=== PATIENT | female | born 1985 | race Caucasian/White ===

== ENCOUNTER 2020-12-31 07:50 | Inpatient (IN) ==
[2020-12-31] MEDS ORDERED: Lactated Ringers 1000 ml BAG 1,000 ML IV ONE (08:50)
[2020-12-31] MEDS ORDERED: Buffered Lidocaine 1% SYRIN 1 ml INTRADERM ONE (08:50)
[2020-12-31] MEDS ORDERED: Lactated Ringers 1000 ml BAG 1,000 ML IV SCH (09:00)
[2020-12-31 09:38] LABS: Urine Benzodiazepine Screen None Detected (None Detect); Urine Cannabinoids Screen None Detected (None Detect); Urine Opiates Screen None Detected (None Detect)
[2020-12-31] MEDS ORDERED: Promethazine INJ(RESTRICTED) 25 MG/ML 1 ml VIAL IV PRN (22:37)
[2020-12-31] MEDS ORDERED: Morphine 10 MG/ML VIAL (1 ml) IV ONE (22:37)
[2020-12-31 23:39] LABS: Hematocrit 41 % (35-47); Mean Corpuscular HGB Conc 34 g/dL (31-36); Mean Corpuscular Hemoglobin 31 pg (27-31); Mean Corpuscular Volume 93 fL (80-97); Red Blood Count 4.46 10^6 /uL (3.70-4.87); Red Cell Distribution Width 14 % (10-15); White Blood Count 7.4 10^3/uL (3.5-10.8)
[2020-12-31 23:40] LABS: ABS Monocytes 0.7 10^3/ul (0-0.8); ABS Neutrophils 4.6 10^3/ul (1.5-7.7); Eosinophil % 0.4 %; Lymphocyte % 27.2 %; Mean Platelet Volume 11.1 fL (7.4-10.4); Nucleated Red Blood Cells % 0.1; Platelet Count 163 10^3/uL (150-450)
[2021-01-01] MEDS ORDERED: OBEPIDURAL 250 ML EPIDURAL ONE (15:09)
[2021-01-01] MEDS ORDERED: Phenylephrine 40 mcg/mL 10mL (400mcg) SYRINGE IV PUSH PRN ×2 (16:06)
[2021-01-01] MEDS ORDERED: EPHEDrine (Pressors) 50 MG/ML VIAL IV PUSH PRN ×2 (16:06)
[2021-01-01] MEDS ORDERED: Lactated Ringers 1000 ml BAG 1,000 ML IV ONE (16:06)
[2021-01-01] MEDS ORDERED: Sodium Citrate/Citric Acid LIQ 15 ML UDC PO PRN (16:06)
[2021-01-01] MEDS ORDERED: OBEPIDURAL 250 ML EPIDURAL SCH (17:00)
[2021-01-01] MEDS ORDERED: Lactated Ringers 1000 ml BAG 1,000 ML IV SCH ×2 (17:00→19:00)
[2021-01-01] MEDS ORDERED: ceFOXitin 2 GM IVPREMIX 2 GM/50 ML BAG ONE (17:10)
[2021-01-01] MEDS ORDERED: Oxytocin 10 UNITS/ML 1 ML VIAL ONE (17:18)
[2021-01-01] MEDS ORDERED: Chloroprocaine 3% 20 ml VIAL ONE (17:20)
[2021-01-01] MEDS ORDERED: Phenylephrine 40 mcg/mL 10mL (400mcg) SYRINGE ONE (17:40)
[2021-01-01] MEDS ORDERED: Morphine PF AMP (0.5MG/ML) 5 MG/10 ML AMP ONE (18:01)
[2021-01-01] MEDS ORDERED: Naloxone 0.4 mg VIAL 0.4 mg/ml 1 ml VIAL IV PRN ×2 (18:05→18:06)
[2021-01-01] MEDS ORDERED: fentaNYL 100 mcg/2 ml 50 MCG/ML VIAL IV PRN (18:05)
[2021-01-01] MEDS ORDERED: Ondansetron 4 mg VIAL 2 MG/ML 2 ml VIAL IV PRN (18:06)
[2021-01-01] MEDS ORDERED: DiMENhydriNATE IV 50 mg/ml 1 ml VIAL IV PUSH PRN (18:06)
[2021-01-01] MEDS ORDERED: HYDROcodone/ACETAMIN 5/325 mg TAB PO PRN (18:06)
[2021-01-01] MEDS ORDERED: Dexamethasone IV 4 MG/ML VIAL 1 ml VIAL ONE (18:10)
[2021-01-01] MEDS ORDERED: Dibucaine 1% OINT 28.35 GM TUBE PR PRN (18:18)
[2021-01-01] MEDS ORDERED: Witch Hazel PAD JAR TOPICAL PRN (18:18)
[2021-01-01] MEDS ORDERED: Glycerin ADULT 2.4 gm SUPP PR PRN (18:18)
[2021-01-01] MEDS ORDERED: Oxytocin in LR 20 UNITS/1,000 ML BAG IVPB SCH (19:00)
[2021-01-01 19:37] LABS: Urine Appearance Clear; Urine Bilirubin Negative (Negative); Urine Blood Negative (Negative); Urine Color Straw; Urine Glucose Negative (Negative); Urine Ketones Negative (Negative); Urine Nitrite Negative (Negative); Urine Protein Negative (Negative); Urine Specific Gravity 1.004 (1.002-1.030); Urine Urobilinogen Negative (Negative)
[2021-01-01] MEDS: diPHENhydraMINE IV 50 MG/ML 1 ml VIAL (BENADRYL) IV PRN (20:38)
[2021-01-02] MEDS ORDERED: diPHENhydraMINE IV 50 MG/ML 1 ml VIAL (BENADRYL) IV PRN (00:16)
[2021-01-02] MEDS: diPHENhydraMINE IV 50 MG/ML 1 ml VIAL (BENADRYL) IV PRN (08:19)
[2021-01-02 08:28] LABS: ABS Lymphocytes 1.6 10^3/ul (1.0-4.8); ABS Monocytes 0.9 10^3/ul (0-0.8); ABS Neutrophils 8.5 10^3/ul (1.5-7.7); Hematocrit 33 % (35-47); Lymphocyte % 14.3 %; Mean Corpuscular HGB Conc 34 g/dL (31-36); Mean Corpuscular Hemoglobin 31 pg (27-31); Mean Corpuscular Volume 93 fL (80-97); Mean Platelet Volume 10.4 fL (7.4-10.4); Platelet Count 137 10^3/uL (150-450); Red Blood Count 3.53 10^6 /uL (3.70-4.87); Red Cell Distribution Width 14 % (10-15); White Blood Count 11.1 10^3/uL (3.5-10.8)
[2021-01-04 07:47] VITALS: BP 109/59
== END 2021-01-04 11:45 | disposition home or self-care (01) | DRG 540 ==
LOC: MCHOBOUT 07:50 → MCHOB 08:45
PROVIDERS: ADMIT Midwife; ATTEND Obstetrics & Gynecology

== ENCOUNTER 2023-02-08 04:02 | Inpatient (IN) ==
[2023-02-08] MEDS ORDERED: Buffered Lidocaine 1% SYRIN 1 ml INTRADERM ONE (06:30)
[2023-02-08] MEDS ORDERED: Lidocaine 1% VIAL 10 MG/ML 30 ML VIAL INJ PRN (06:30)
[2023-02-08] MEDS ORDERED: Promethazine INJ(RESTRICTED) 25 MG/ML 1 ml VIAL IV PRN (06:30)
[2023-02-08] MEDS ORDERED: Lactated Ringers 1000 ml BAG 1,000 ML IV ONE ×2 (06:30→13:03)
[2023-02-08 06:52] LABS: ABS Lymphocytes 1.5 10^3/uL (1.0-4.8); ABS Monocytes 0.4 10^3/uL (0.0-0.9); ABS Neutrophils 6.3 10^3/uL (1.5-7.6); ABS Nucleated RBC 0.01 10^3/ul; Eosinophil % 0.1 %; Hematocrit 34.9 % (35-45); Hemoglobin 12.3 g/dL (11.5-14.3); Mean Corpuscular Hemoglobin 32.4 pg (27-33); Mean Corpuscular Hgb Conc 35.1 g/dL (31-36); Mean Corpuscular Volume 92.3 fL (80-97); Mean Platelet Volume 9.6 fL (7.5-11.2); Nucleated Red Blood Cells % 0.1 /100 WBC (0.0-0.4); Platelet Count 233 10^3/uL (150-450); Red Blood Count 3.78 10^6/uL (3.63-4.92); White Blood Count 8.3 10^3/uL (3.8-11.8)
[2023-02-08] MEDS ORDERED: Lactated Ringers 1000 ml BAG 1,000 ML IV SCH ×2 (07:00→14:00)
[2023-02-08 07:11] LABS: Urine Benzodiazepine Screen None Detected (None Detect); Urine Cannabinoids Screen None Detected (None Detect); Urine Opiates Screen None Detected (None Detect)
[2023-02-08] MEDS ORDERED: OBEPIDURAL (200 ML) 200 ML EPIDURAL ONE (12:25)
[2023-02-08] MEDS ORDERED: Lidocaine 1.5% EPI 1:200,000 30 ML SDV ONE (12:25)
[2023-02-08] MEDS: Phenylephrine 40 mcg/mL 10mL (400mcg) SYRINGE IV PUSH PRN ×3 (13:00→13:28)
[2023-02-08] MEDS ORDERED: Lactated Ringers 1000 ml BAG 500 ML IV PRN (13:03)
[2023-02-08] MEDS ORDERED: Sodium Citrate/Citric Acid LIQ 15 ML UDC PO PRN (13:03)
[2023-02-08] MEDS ORDERED: OBEPIDURAL (200 ML) 200 ML EPIDURAL SCH (14:00)
[2023-02-08] MEDS ORDERED: Oxytocin in LR 20,000 MILLI.UNIT/1,000 ML BAG IV SCH (15:15)
[2023-02-08 19:34] LABS: Urine Appearance Clear; Urine Bilirubin Negative (Negative); Urine Blood 3+ (Negative); Urine Color Straw; Urine Glucose Negative (Negative); Urine Ketones Negative (Negative); Urine Nitrite Negative (Negative); Urine Protein 1+(30 mg/dL) (Negative); Urine Specific Gravity 1.002 (1.002-1.030); Urine Urobilinogen Negative (Negative)
[2023-02-08 19:54] LABS: Urine Bacteria 1+ (Absent); Urine Red Blood Cell 2+(6-10/hpf) (Absent); Urine Squamous Epithelial Cell Present (Absent); Urine White Blood Cell Trace(0-5/hpf) (Absent)
[2023-02-08] MEDS ORDERED: fentaNYL 100 mcg/2 ml 50 MCG/ML VIAL ONE (21:30)
[2023-02-08] MEDS ORDERED: Lidocaine 2% w/ EPI 1:200,000 MPF 20 ML SDV VIAL ONE (21:30)
[2023-02-08] MEDS ORDERED: ceFOXitin 2 GM IVPREMIX 2 GM/50 ML BAG ONE (21:31)
[2023-02-08] MEDS ORDERED: Phenylephrine 40 mcg/mL 10mL (400mcg) SYRINGE ONE (21:47)
[2023-02-08] MEDS ORDERED: Oxytocin 10 UNITS/ML 1 ML VIAL ONE (21:48)
[2023-02-08] MEDS ORDERED: Ondansetron 4 mg VIAL 2 MG/ML 2 ml VIAL ONE (21:48)
[2023-02-08] MEDS ORDERED: Dexamethasone IV 4 MG/ML VIAL 1 ml VIAL ONE (21:48)
[2023-02-08] MEDS ORDERED: Morphine PF AMP (0.5MG/ML) 5 MG/10 ML AMP ONE (22:03)
[2023-02-08] MEDS ORDERED: Ondansetron 4 mg VIAL 2 MG/ML 2 ml VIAL IV PRN (22:51)
[2023-02-08] MEDS ORDERED: Metoclopramide 5 MG/ML VIAL (10 mg) IV PRN (22:51)
[2023-02-08] MEDS ORDERED: Naloxone 0.4 mg VIAL 0.4 mg/ml 1 ml VIAL IV PUSH PRN (22:51)
[2023-02-08] MEDS ORDERED: Acetaminophen IV 1 GM/100ML 1,000 MG/100 ML BAG IV PRN (22:51)
[2023-02-09] MEDS ORDERED: Glycerin ADULT 2.4 gm SUPP PR PRN (08:19)
[2023-02-09] MEDS ORDERED: Dibucaine 1% OINT 28.35 GM TUBE PR PRN (08:19)
[2023-02-09] MEDS ORDERED: Witch Hazel PAD JAR TOPICAL PRN (08:19)
[2023-02-09] MEDS ORDERED: Lactated Ringers 1000 ml BAG 1,000 ML IV SCH (09:00)
[2023-02-09 09:06] LABS: ABS Lymphocytes 1.1 10^3/uL (1.0-4.8); ABS Monocytes 0.8 10^3/uL (0.0-0.9); Hematocrit 28.8 % (35-45); Hemoglobin 10.1 g/dL (11.5-14.3); Lymphocyte % 8.1 %; Mean Corpuscular Hemoglobin 32.2 pg (27-33); Mean Corpuscular Hgb Conc 34.9 g/dL (31-36); Mean Corpuscular Volume 92.3 fL (80-97); Mean Platelet Volume 8.7 fL (7.5-11.2); Platelet Count 171 10^3/uL (150-450); Red Blood Count 3.12 10^6/uL (3.63-4.92); Red Cell Distribution Width 13.8 % (12-17)
[2023-02-09] MEDS: CMCS:diPHENhydraMINE CREAM 2%(NF) 28 gm TUBE TOPICAL SCH ×3 (12:11→21:20)
[2023-02-10] MEDS: CMCS:diPHENhydraMINE CREAM 2%(NF) 28 gm TUBE TOPICAL SCH (08:42)
[2023-02-10 15:55] VITALS: BP 99/49
[2023-02-10] MEDS ORDERED: Influenza vaccine *QUAD* *2023-24* 0.5 ML SYRINGE IM ONE (16:00)
== END 2023-02-10 16:32 | disposition home or self-care (01) | DRG 540 ==
LOC: MCHOBOUT 04:02 → MCHOB 05:47
PROVIDERS: ADMIT Obstetrics & Gynecology; ATTEND Obstetrics & Gynecology